=== PATIENT | female | born 1975 | race Two or more races ===

== ENCOUNTER 2018-04-06 05:49 | Emergency (ER) | payer BC ==
[2018-04-06 06:37] VITALS: BP 120/78; PULSE 101; TEMP 98.3; BMI 25.8
--- NOTE | 2018-04-06 07:19 | PDOC ---
History of Present Illness - History of Present Illness Initial Comments: Diane Mehta is an otherwise healthy 42yo woman who presents with vomiting and diarrhea that started yesterday evening. She reports that she was feeling well throughout the day yesterday and was able to eat/drink normally. She started having vomiting and watery diarrhea in the evening after dinner. She denies <Sarah Carrera - Last Filed: 04/06/18 09:03> <Matt Marin - Last Filed: 04/06/18 09:22> - General Chief Complaint: Pain, Acute Stated Complaint: VOMITING/8WKS Time Seen by Provider: 04/06/18 07:16 Past History - Suicide/Smoking/Psychosocial Hx Smoking Status: No Smoking History: Never smoked Number of Cigarettes Smoked Daily: 0 Information on smoking cessation initiated: No Hx Alcohol Use: No Drug/Substance Use Hx: No <Sarah Carrera - Last Filed: 04/06/18 09:03> <Matt Marin - Last Filed: 04/06/18 09:22> - Past Medical History Allergies/Adverse Reactions: Allergies Allergy/AdvReac Type Severity Reaction Status Date / Time No Known Allergies Allergy Verified 02/20/12 22:35 Home Medications: Ambulatory Orders Ondansetron HCl [Zofran] 4 mg PO TID PRN #21 tablet 04/06/18 Review of Systems - Review of Systems Comments:: General: No fevers, no chills, no weight or appetite change, no malaise HEENT: No changes in vision, no changes in hearing, no congestion, no sore throat CV: No chest pain, no palpitations, no LE edema Pulm: No SOB, no cough, no wheezing GI: +Vomiting, +watery diarrhea, no melena : No frequency, no urgency, no dysuria. + w/ demise Musc: No back pain, no joint swelling, no recent injury Skin: No rash, no lesions, no erythema Endo: No excessive thirst, no heat/cold intolerance Heme: No unusual bruising or bleeding, no swollen glands Neuro: No syncope, no numbness/tingling, no focal weakness Vasc: No claudication Psych: No recent change in mood, no SI or HI <Sarah Carrera - Last Filed: 04/06/18 09:03> *Physical Exam - Vital Signs Last Vital Signs Temp Pulse Resp BP Pulse Ox 98.3 F 101 H 20 120/78 99 04/06/18 06:03 04/06/18 06:03 04/06/18 06:03 04/06/18 06:03 04/06/18 06:03 - Physical Exam Comments: General: Comfortable, no acute distress HEENT: PERRL, EOMI, MMM, voice normal, normal neck ROM, no LAD Cards: RRR, no murmur appreciated Pulm: Comfortable on room air, clear to auscultation bilaterally Abd: Soft, nontender, nondistended. No rebound, no guarding : No CVA tenderness Ext: Atraumatic. No LE edema. ROM intact. Strength 5/5 and equal bilaterally Vasc: Extremities WWP. Palpable radial and pedal pulses bilaterally Skin: Normal color, no rashes or lesions Neuro: A&Ox3, CN grossly intact, normal speech, motor/sensory grossly intact and symmetric Psych: Mood appropriate to situation <Sarah Carrera - Last Filed: 04/06/18 09:03> - Vital Signs Last Vital Signs Temp Pulse Resp BP Pulse Ox 98.3 F 101 H 20 120/78 99 04/06/18 06:03 04/06/18 06:03 04/06/18 06:03 04/06/18 06:03 04/06/18 06:03 <Matt Marin - Last Filed: 04/06/18 09:22> Moderate Sedation - Procedure Monitoring Vital Signs: Procedure Monitoring Vital Signs Temperature 98.3 F 04/06/18 06:03 Pulse Rate 101 H 04/06/18 06:03 Respiratory Rate 20 04/06/18 06:03 Blood Pressure 120/78 04/06/18 06:03 O2 Sat by Pulse Oximetry (%) 99 04/06/18 06:03 <Sarah Carrera - Last Filed: 04/06/18 09:03> - Procedure Monitoring Vital Signs: Procedure Monitoring Vital Signs Temperature 98.3 F 04/06/18 06:03 Pulse Rate 101 H 04/06/18 06:03 Respiratory Rate 20 04/06/18 06:03 Blood Pressure 120/78 04/06/18 06:03 O2 Sat by Pulse Oximetry (%) 99 04/06/18 06:03 <Matt Marin - Last Filed: 04/06/18 09:22> ED Treatment Course - ADDITIONAL ORDERS Additional order review: Laboratory Results 04/06/18 07:39 Urine HCG, Qual Positive - Medications Given in the ED: ED Medications Discontinued Medications Generic Name Dose Route Start Last Admin Trade Name Freq PRN Reason Stop Dose Admin Ondansetron HCl 4 mg 04/06/18 08:17 04/06/18 08:18 Zofran Odt - SL 04/06/18 08:18 4 mg ONCE ONE Administration <Matt Marin - Last Filed: 04/06/18 09:22> Medical Decision Making - Medical Decision Making 04/06/18 07:18 Attempt made to see Ms Mehta; at ultrasound currently 04/06/18 08:16 Diane Mehta is an otherwise healthy 42yo woman, currently with known demise (US at her OB last week), who presents with multiple episodes of vomiting and watery diarrhea starting yesterday evening. - Benign exam, no abdominal tenderness or other abnormalities. - No recent travel, known sick contacts, unusual food. With benign exam and short duration, most likely viral gastroenteritis - US ordered overnight, confirms demise at 5w6d - Feeling somewhat improved; no additional episodes of vomiting currently. Was able to drink some water w/o vomiting - SL zofran given. Will PO challenge. Likely to d/c home if able to tolerate PO. 04/06/18 09:03 - Feels significantly improved, able to tolerate PO - D/C home with zofran and PMD follow up - Home care and return precautions discussed with Ms Mehta, who agrees and understands. Discussed with Dr Marin. Sarah Carrera PGY1 <Sarah Carrera - Last Filed: 04/06/18 09:03> *DC/Admit/Observation/Transfer <Sarah Carrera - Last Filed: 04/06/18 09:03> <Matt Marin - Last Filed: 04/06/18 09:22> Diagnosis at time of Disposition: Vomiting and diarrhea, demise - Prescriptions Prescriptions: Ondansetron HCl [Zofran] 4 mg PO TID PRN #21 tablet PRN Reason: Nausea And/Or Vomiting - Referrals Referrals: Cinthia Barraza [Primary Care Provider] - - Patient Instructions Printed Discharge Instructions: DI for Viral Gastroenteritis -- Adult Additional Instructions: Zofran as prescribed. Drink plenty of fluids. No solid food until tomorrow if no vomiting by tomorrow morning okay to proceed to a bland diet. Return to the emergency department for any severe worsening symptoms any severe worsening abdominal pain or for any concerns. - Post Discharge Activity Forms/Work/School Notes: Back to Work
[2018-04-06 08:13] LABS: HCG,QUALITATIVE URINE Positive
[2018-04-06] MEDS ORDERED: ONDANSETRON *ODT* 4 MG TABLET ONE (08:15)
[2018-04-06] MEDS ORDERED: ONDANSETRON *ODT* 4 MG TABLET SL ONE (08:17)
--- NOTE | 2018-04-06 09:16 | PDOC ---
Attending Attestation - Resident Resident Name: [email or web address] - ED Attending Attestation I have performed the following: I have examined & evaluated the patient, The case was reviewed & discussed with the resident, I agree w/resident's findings & plan, Exceptions are as noted - HPI HPI: 04/06/18 13:46 Reviewed Residents HPI - Physicial Exam PE: 04/06/18 13:47 Reviewed Residents PE - Medical Decision Making 04/06/18 13:48 42 years old recently diagnosed with demise followed by her OB plan is hopefully for natural miscarriage presents to the ED with nausea vomiting diarrhea 1 day Unable to tolerate fluids Status post by mouth Zofran patient now able to tolerate fluids feeling better Feels comfortable returning home we'll provide patient with prescription for Zofran. Her abdominal examination is benign. Findings, the need for follow-up and strict return instructions discussed with patient.
[2018-04-06 10:04] LABS: URINE APPEARANCE SLCLOUDY; URINE BILIRUBIN NEGATIVE (<2.0 mg/dL); URINE COLOR YELLOW; URINE GLUCOSE (UA) NEGATIVE (NEGATIVE); URINE KETONE 1+ (NEGATIVE); URINE LEUK ESTERASE NEGATIVE (NEGATIVE); URINE NITRITE NEGATIVE (NEGATIVE); URINE PROTEIN NEGATIVE (NEGATIVE); URINE UROBILINOGEN NEGATIVE mg/dL (0.2-1.0)
== END 2018-04-06 09:37 | disposition home or self-care (01) ==
LOC: JER 05:49
DX: O99.89 Other specified diseases and conditions complicating pregnancy, childbirth and the puerperium (principal); K52.9 Noninfective gastroenteritis and colitis, unspecified; O02.1 Missed abortion; Z3A.08 8 weeks gestation of pregnancy
CPT/HCPCS: 76817-TC; 81003; 84703; 99282-25; Q0162